=== PATIENT | male | born 1960 | race Caucasian/White ===

== ENCOUNTER 2016-09-28 10:17 | Emergency (ER) | payer BC ==
[2009-05-14 09:10] VITALS: BP 138/105
[~2016-09-28] VITALS: Ht 182.9 cm; Wt 181.8 kg
[~2016-09-28 10:17] MED LIST: AMOXICILLIN 8751 TAB PO; ANUSOL-HC SUPPO25 MG RC; ASPIRIN 32325 MG/TA1 PO; ASPIRIN 32325 MG/TAB PO; ASPIRIN E.C. 8181 MG PO; BENICAR HCT 251 TAB PO; BENICAR/HCTZ PO; BUFFERED ASPIR325 M1 PO; BUMEX 1MG TA1 MG/TA1 PO; CATAPRES 0.1MG0.1 MG PO; CATAPRES0.2 MG PO; CELEBREX 200MG200 MG PO; CIPRO 500MG TA500 MG PO; CLARITIN REDITA10 MG PO; CLOPIDOGREL PO; COUMADIN 5MG5 MG/TAB PO; COUMADIN 77.5 MG/TAB PO; COUMADIN4 MG PO; CRESTOR20 MG PO; DOXYCYCLINE 10100 MG PO; DOXYCYCLINE100 M2 PO; FISH OIL1 IU PO; FISH OIL1000 MG PO; FLAGYL500 MG PO; FLEXERIL 1010 MG/TAB PO; FLONASE NASAL S16 GM NS; GARLIC SUPPLEM300 MG PO; LORTAB 5/500 501 TAB PO; LOVENOX 100100 MG/ML SQ; LOVENOX 6060 MG/0.6 SQ; MOTRIN 800800 MG/TAB PO; MULTIPLE VITAMI1 CAP PO; MULTIPLE VITAMI1 TAB PO; MULTIVITAMIN1 CTB PO; MVI; NAPROSYN500 MG PO; NIASPAN500 MG PO; NITROSTAT0.4 MG/TAB SL; NORCO 325 MG-51 TAB PO; NORCO 325 MG-7.1 TAB PO; NORVASC 5MG5 MG/TAB PO; NORVASC PO; NORVASC2.5 MG PO; PERCOCET 325 MG1 TA2 PO; PERCOCET 325 MG1 TAB PO; PHARMASSURE GA500 MG PO; PLAVIX 75MG TAB75 MG PO; PRILOSEC 20MG20 MG PO; PRILOSEC10 MG PO; PROTONIX 40MG T40 MG PO; SIMCOR 1000 MG-1 TE1 PO; TEKTURNA150 MG PO; TOPROL XL 50MG50 MG PO; TOPROL XL50 MG PO; TRAMADOL HCL50 MG PO; TRILIPIX45 MG PO; ULTRAM 50MG TAB50 MG PO; VICODIN 5/5001 UDTAB PO; VITAMIN C BUFF500 MG PO; VITAMIN C500 MG PO; ZYLOPRIM 100MG100 MG PO
[2016-09-28 10:21] VITALS: TEMP 97.8
[2016-09-28 11:21] LABS: HEMATOCRIT 40.9 % (42.0-52.0); HEMOGLOBIN 14.1 g/dl (13.5-18.0); INR 1.2 (0.8-3.0); MEAN CELL VOLUME 79 fl (80.0-100.0); MEAN CORPUSCULAR HEMOGLOBIN 27 pg (27.0-31.0); MEAN CORPUSCULAR HGB CONC 35 g/dl (33.0-37.0); MEAN PLATELET VOLUME 9.3 fl (7.4-10.4); PLATELET COUNT 136 K/mm3 (130-400); PROTHROMBIN TIME 13.8 SECONDS (9.7-12.8); REDCELL DISTRIBUTION WIDTH-CV 15.7 % (11.5-14.5); WHITE BLOOD COUNT 5.9 K/mm3 (4.8-10.8)
[2016-09-28 11:22] LABS: ADD PATHOLOGY DIFF REVIEW NO
[2016-09-28 11:27] LABS: ADJUSTED CALCIUM 8.8 mg/dL (8.4-10.2); BILIRUBIN,TOTAL 1.3 mg/dL (0.0-1.0); CALCIUM 8.8 mg/dL (8.4-10.2); CREATININE, serum 1.03 mg/dL (0.66-1.25); POTASSIUM 3.4 mmol/L (3.4-5.0)
[2016-09-28 11:38] LABS: TROPONIN-I 0.014 ng/mL (0.000-0.034)
[2016-09-28] MEDS ORDERED: FLEXERIL 1010 MG/TAB PO (11:38)
[2016-09-28] MEDS ORDERED: LAMISIL250 M1 PO (11:38)
[2016-09-28] MEDS ORDERED: CATAPRES0.2 MG PO (11:38)
[2016-09-28] MEDS ORDERED: TOPROL XL 50MG50 MG PO (11:39)
[2016-09-28] MEDS ORDERED: BENICAR HCT 251 TAB PO (11:39)
[2016-09-28 12:01] LABS: BAND 32 % (0-10); BASOPHIL 1 % (0-2); METAMYELOCYTE 1 % (0-0); NEUTROPHILS 52 % (42.0-75.2); TOTAL CELLS COUNTED 100
[2016-09-28 12:04] LABS: ANISOCYTOSIS 1+; HYPOCHROMIA 1+; MICROCYTOSIS 1+; POLYCHROMASIA 1+
[2016-09-28 14:32] LABS: TROPONIN-I 0.012 ng/mL (0.000-0.034)
[2016-09-28] MEDS ORDERED: BACTRIM DS 8001 TAB PO (14:57)
[2016-09-28 15:13] VITALS: BP 131/80; PULSE 74
== END 2016-09-28 15:12 | disposition home or self-care (01) ==
LOC: COL.ER 10:17
PROVIDERS: Emergency Medicine
DX: R07.9 Chest pain, unspecified (principal); J32.9 Chronic sinusitis, unspecified; E87.8 Other disorders of electrolyte and fluid balance, not elsewhere classified; I10 Essential (primary) hypertension; I25.2 Old myocardial infarction; E78.5 Hyperlipidemia, unspecified; I25.10 Atherosclerotic heart disease of native coronary artery without angina pectoris; E66.01 Morbid (severe) obesity due to excess calories; Z95.5 Presence of coronary angioplasty implant and graft
CPT/HCPCS: J7030

== ENCOUNTER 2016-10-12 19:08 | Emergency (ER) | payer BC ==
[2009-05-14 09:10] VITALS: BP 138/105
[~2016-10-12] VITALS: Ht 182.9 cm; Wt 181.8 kg
[~2016-10-12 19:08] MED LIST changes: +BACTRIM DS 8001 TAB PO; +LAMISIL250 M1 PO
[2016-10-12 19:42] LABS: BASO # 0.1 (0.0-0.2); EOS % 0.6 % (0-4.0); GRAN # 3.7 (1.4-6.5); GRAN % 71.4 % (42.2-75.2); LYMPH # 0.9 (1.2-3.4); LYMPH % 17.7 % (20.0-51.0); MEAN CELL VOLUME 78 fl (80.0-100.0); MEAN CORPUSCULAR HGB CONC 35 g/dl (33.0-37.0); MEAN PLATELET VOLUME 8.8 fl (7.4-10.4); MONO # 0.5 (0.1-0.6); MONO % 8.9 % (1.7-9.3); PLATELET COUNT 300 K/mm3 (130-400); RED BLOOD COUNT 3.96 M/mm3 (4.20-5.60); REDCELL DISTRIBUTION WIDTH-CV 15.9 % (11.5-14.5); WHITE BLOOD COUNT 5.1 K/mm3 (4.8-10.8)
[2016-10-12 19:43] LABS: HEMATOCRIT 30.9 % (42.0-52.0); HEMOGLOBIN 10.8 g/dl (13.5-18.0); MEAN CORPUSCULAR HEMOGLOBIN 27 pg (27.0-31.0)
[2016-10-12 19:46] LABS: INR 1.2 (0.8-3.0); PROTHROMBIN TIME 13.1 SECONDS (9.7-12.8)
[2016-10-12 19:49] LABS: PARTIAL THROMBOPLASTIN TIME 30.4 SECONDS (26.0-37.0)
[2016-10-12 19:56] LABS: ADJUSTED CALCIUM 8.8 mg/dL (8.4-10.2); ALANINE AMINOTRANSFERASE 43 U/L (21-72); ALBUMIN 3.7 gm/dL (3.5-5.0); ALKALINE PHOSPHATASE 133 U/L (50-136); ANION GAP 10 mmol/L (7-16); BLOOD UREA NITROGEN 18 mg/dL (9-20); CALCIUM 8.6 mg/dL (8.4-10.2); CARBON DIOXIDE 27 mmol/L (22-30); CHLORIDE 95 mmol/L (98-107); CREATININE, serum 1.29 mg/dL (0.66-1.25); GLUCOSE 114 mg/dL (74-106); POTASSIUM 3.7 mmol/L (3.4-5.0); SODIUM 131 mmol/L (137-145); TOTAL PROTEIN 7.1 gm/dL (6.4-8.2)
[2016-10-12 20:05] LABS: TROPONIN-I < 0.012 ng/mL (0.000-0.034)
[2016-10-12 20:21] LABS: C-REACTIVE PROTEIN 14.8 mg/dL (0.0-0.9)
[2016-10-12 21:15] LABS: PH 7 (5-8); SQUAMOUS EPITHELIAL 0-2 /hpf; URINE APPEARANCE Clear; URINE BACTERIA None Seen /hpf; URINE BILIRUBIN Negative (NEGATIVE); URINE BLOOD 1+ (NEGATIVE); URINE COLOR Straw; URINE GLUCOSE Negative (NEGATIVE); URINE KETONE Negative (NEGATIVE); URINE RBC 0-2 /hpf; URINE UROBILINOGEN Negative (NEGATIVE); URINE WBC 0-2 /hpf
[2016-10-12 23:04] VITALS: BP 130/88; PULSE 78; TEMP 98.9
== END 2016-10-12 23:10 | disposition home or self-care (01) ==
LOC: COL.ER 19:08
PROVIDERS: Emergency Medicine
DX: B34.9 Viral infection, unspecified (principal); J32.9 Chronic sinusitis, unspecified; I10 Essential (primary) hypertension; R60.0 Localized edema; R53.1 Weakness; R06.02 Shortness of breath; R07.9 Chest pain, unspecified; R51 Headache; I25.10 Atherosclerotic heart disease of native coronary artery without angina pectoris; Z95.5 Presence of coronary angioplasty implant and graft; E66.01 Morbid (severe) obesity due to excess calories; Z68.43 Body mass index [BMI] 50.0-59.9, adult; R79.89 Other specified abnormal findings of blood chemistry
CPT/HCPCS: J2543; J2765; J3010; J7030; J7050; Q9967

== ENCOUNTER 2016-11-03 11:15 | Day surgery (SDC) | payer BC ==
[~2016-11-03] VITALS: Ht 182.9 cm; Wt 179.4 kg
[2016-11-03] VITALS (331 sets, daily range): BP systolic 112–151; BP diastolic 62–95; PULSE 63–78; TEMP 97–98.2; O2SAT 85–100
[2016-11-03] MEDS ORDERED: LAMISIL250 M1 (11:53)
[2016-11-03 12:45] LABS: HEMOGLOBIN 12.3 g/dl (13.5-18.0); MEAN CELL VOLUME 82 fl (80.0-100.0); MEAN CORPUSCULAR HEMOGLOBIN 28 pg (27.0-31.0); MEAN CORPUSCULAR HGB CONC 34 g/dl (33.0-37.0); MEAN PLATELET VOLUME 9.1 fl (7.4-10.4); PLATELET COUNT 244 K/mm3 (130-400); RED BLOOD COUNT 4.45 M/mm3 (4.20-5.60); REDCELL DISTRIBUTION WIDTH-CV 16.7 % (11.5-14.5); WHITE BLOOD COUNT 8.7 K/mm3 (4.8-10.8)
[2016-11-03 12:46] LABS: HEMATOCRIT 36.3 % (42.0-52.0); INR 1.1 (0.8-3.0); PROTHROMBIN TIME 11.7 SECONDS (9.7-12.8)
[2016-11-03 13:08] LABS: CALCIUM 9.1 mg/dL (8.4-10.2); CREATININE, serum 0.8 mg/dL (0.66-1.25); POTASSIUM 3.5 mmol/L (3.4-5.0)
[2016-11-04] VITALS (417 sets, daily range): BP systolic 131–149; BP diastolic 74–93; PULSE 60–61; TEMP 97.7–98.1; O2SAT 83–100
[2016-11-04 06:59] LABS: BASO # 0.1 (0.0-0.2); BASO % 0.9 % (0.0-2.0); EOS # 0.2 (0.0-0.7); EOS % 3.5 % (0-4.0); GRAN # 3.7 (1.4-6.5); HEMOGLOBIN 12.2 g/dl (13.5-18.0); LYMPH # 1.4 (1.2-3.4); LYMPH % 24.2 % (20.0-51.0); MEAN CELL VOLUME 82 fl (80.0-100.0); MEAN CORPUSCULAR HEMOGLOBIN 27 pg (27.0-31.0); MEAN CORPUSCULAR HGB CONC 33 g/dl (33.0-37.0); MEAN PLATELET VOLUME 8.9 fl (7.4-10.4); MONO # 0.4 (0.1-0.6); MONO % 7.1 % (1.7-9.3); PLATELET COUNT 212 K/mm3 (130-400); RED BLOOD COUNT 4.47 M/mm3 (4.20-5.60); REDCELL DISTRIBUTION WIDTH-CV 16.5 % (11.5-14.5); WHITE BLOOD COUNT 5.8 K/mm3 (4.8-10.8)
[2016-11-04 07:05] LABS: HEMATOCRIT 36.6 % (42.0-52.0)
[2016-11-04 07:19] LABS: CALCIUM 8.6 mg/dL (8.4-10.2); CREATININE, serum 0.78 mg/dL (0.66-1.25); POTASSIUM 3.6 mmol/L (3.4-5.0)
[2016-11-04] MEDS ORDERED: ASPIRIN E.C. 8181 MG PO (09:16)
== END 2016-11-04 10:40 | disposition home or self-care (01) ==
LOC: COL.CAR 11:15 → ICU 15:16 → IMCU 22:28 → COL.CAR 11-04 10:40
PROVIDERS: Internal Medicine Cardiovascular Disease
DX: I25.110 Atherosclerotic heart disease of native coronary artery with unstable angina pectoris (principal); I25.2 Old myocardial infarction; I34.0 Nonrheumatic mitral (valve) insufficiency
CPT/HCPCS: OP; C1769; C1874; C1894; C9600; J0583; J2250; J3010; Q9967

== ENCOUNTER 2017-01-23 15:53 | Outpatient (RCR) | payer BC ==
[~2017-01-23 15:53] MED LIST changes: +LAMISIL250 M1
== END 2017-01-30 15:30 | disposition still patient (30) ==
LOC: COL.CR 15:53
DX: Z48.812 Encounter for surgical aftercare following surgery on the circulatory system (principal); Z95.5 Presence of coronary angioplasty implant and graft; I25.10 Atherosclerotic heart disease of native coronary artery without angina pectoris

== ENCOUNTER → 2017-02-10 | Outpatient (CLI) | payer BC | LOC: COL.RAD 10:04 | DX: K76.0 Fatty (change of) liver, not elsewhere classified (principal); N28.1 Cyst of kidney, acquired ==

== ENCOUNTER → 2017-11-11 | Outpatient (CLI) | payer BC | LOC: COL.VAS 12:56 | DX: M79.89 Other specified soft tissue disorders (principal) ==

== ENCOUNTER 2018-01-04 13:53 | Outpatient (RCR) | payer OTHER | END 2018-03-23 | disposition home or self-care (01) | LOC: WSOH | DX: S60.222A Contusion of left hand, initial encounter (principal); W22.8XXA Striking against or struck by other objects, initial encounter; W27.8XXA Contact with other nonpowered hand tool, initial encounter; Y99.0 Civilian activity done for income or pay; Z79.899 Other long term (current) drug therapy ==

== ENCOUNTER → 2018-03-30 | Outpatient (CLI) | payer BC | LOC: COL.RAD 08:05 | DX: M17.12 Unilateral primary osteoarthritis, left knee (principal); S83.232A Complex tear of medial meniscus, current injury, left knee, initial encounter; S83.282A Other tear of lateral meniscus, current injury, left knee, initial encounter ==

== ENCOUNTER 2018-05-05 05:24 | Day surgery (SDC) | payer BC ==
[2009-05-14 09:10] VITALS: BP 138/105
[2018-05-05] VITALS (11 sets, daily range): BP systolic 124–182; BP diastolic 52–84; PULSE 74–86; TEMP 97.6–98.2
[~2018-05-05] VITALS: Ht 180.3 cm; Wt 183.6 kg
[2018-05-05] MEDS ORDERED: NORVASC 5MG5 MG/TAB PO (07:03)
[2018-05-05] MEDS ORDERED: VITAMINC1000TA PO (07:04)
[2018-05-05] MEDS ORDERED: MASON NATURAL1200 MG PO (07:07)
[2018-05-05] MEDS ORDERED: ALDACTONE 25MG25 M1 PO (07:10)
[2018-05-05] MEDS ORDERED: PERCOCET 325 MG1 TA2 PO (07:11)
[2018-05-05] MEDS ORDERED: NORCO 325 MG-7.1 TAB PO (10:41)
== END 2018-05-05 13:55 | disposition home or self-care (01) ==
LOC: SDCO 05:24
DX: M23.304 Other meniscus derangements, unspecified medial meniscus, left knee (principal); M23.301 Other meniscus derangements, unspecified lateral meniscus, left knee; M79.4 Hypertrophy of (infrapatellar) fat pad; Z79.02 Long term (current) use of antithrombotics/antiplatelets; Z79.899 Other long term (current) drug therapy; I49.9 Cardiac arrhythmia, unspecified; M10.9 Gout, unspecified; I25.2 Old myocardial infarction; I10 Essential (primary) hypertension; E11.9 Type 2 diabetes mellitus without complications; Z79.84 Long term (current) use of oral hypoglycemic drugs; I25.10 Atherosclerotic heart disease of native coronary artery without angina pectoris; Z86.718 Personal history of other venous thrombosis and embolism; Z86.711 Personal history of pulmonary embolism; G47.33 Obstructive sleep apnea (adult) (pediatric); F40.240 Claustrophobia; F41.9 Anxiety disorder, unspecified; J40 Bronchitis, not specified as acute or chronic; R05 Cough
CPT/HCPCS: J0690; J1100; J1170; J2405; J2704; J3010; J7030

== ENCOUNTER → 2018-05-11 | Outpatient (CLI) | payer BC ==
[~2018-05-11] MED LIST changes: +ALDACTONE 25MG25 M1 PO; +MASON NATURAL1200 MG PO; +VITAMINC1000TA PO
== END ==
LOC: COL.RAD 08:57
DX: R10.9 Unspecified abdominal pain (principal); R60.0 Localized edema; Z96.652 Presence of left artificial knee joint

== ENCOUNTER 2018-05-28 11:02 | Emergency (ER) | payer BC ==
[2009-05-14 09:10] VITALS: BP 138/105
[~2018-05-28] VITALS: Ht 180.3 cm; Wt 177.3 kg
[2018-05-28 11:06] VITALS: TEMP 99
[2018-05-28 13:00] LABS: BASO % 0.4 % (0.0-2.0); EOS # 0.1 (0.0-0.7); EOS % 1.2 % (0-4.0); GRAN # 7.3 (1.4-6.5); GRAN % 77.1 % (42.2-75.2); HEMATOCRIT 42.3 % (42.0-52.0); HEMOGLOBIN 14.3 g/dl (13.5-18.0); LYMPH # 1.4 (1.2-3.4); LYMPH % 15.2 % (20.0-51.0); MEAN CELL VOLUME 85 fl (80.0-100.0); MEAN CORPUSCULAR HEMOGLOBIN 29 pg (27.0-31.0); MEAN CORPUSCULAR HGB CONC 34 g/dl (33.0-37.0); MEAN PLATELET VOLUME 9.2 fl (7.4-10.4); MONO # 0.6 (0.1-0.6); MONO % 5.8 % (1.7-9.3); PLATELET COUNT 375 K/mm3 (130-400); REDCELL DISTRIBUTION WIDTH-CV 15.2 % (11.5-14.5)
[2018-05-28 13:12] LABS: ALANINE AMINOTRANSFERASE 61 U/L (21-72); ALBUMIN 4.3 gm/dL (3.5-5.0); ALKALINE PHOSPHATASE 88 U/L (50-136); ANION GAP 8 mmol/L (7-16); AST,SGOT 77 U/L (15-37); BILIRUBIN,TOTAL 0.4 mg/dL (0.0-1.0); BLOOD UREA NITROGEN 17 mg/dL (9-20); CALCIUM 9.2 mg/dL (8.4-10.2); CARBON DIOXIDE 27 mmol/L (22-30); CHLORIDE 107 mmol/L (98-107); CREATININE, serum 0.88 mg/dL (0.66-1.25); GLUCOSE 148 mg/dL (74-106); SODIUM 142 mmol/L (137-145); TOTAL PROTEIN 7.9 gm/dL (6.4-8.2)
[2018-05-28 13:26] LABS: TROPONIN-I < 0.012 ng/mL (0.000-0.034)
[2018-05-28] MEDS ORDERED: NORVASC 5MG5 MG/TAB PO (14:31)
[2018-05-28] MEDS ORDERED: GLUCOPHAGE500 MG/TAB PO (14:33)
[2018-05-28 15:10] VITALS: BP 148/82; PULSE 75
== END 2018-05-28 16:12 | disposition home or self-care (01) ==
LOC: COL.ER 11:02
PROVIDERS: Emergency Medicine
DX: I10 Essential (primary) hypertension (principal); R53.81 Other malaise; Z79.02 Long term (current) use of antithrombotics/antiplatelets; Z79.82 Long term (current) use of aspirin

== ENCOUNTER 2018-08-11 14:36 | Outpatient (RCR) | payer OTHER ==
[~2018-08-11 14:36] MED LIST changes: +GLUCOPHAGE500 MG/TAB PO
== END 2018-11-08 | disposition home or self-care (01) ==
LOC: WSOH
DX: M25.511 Pain in right shoulder (principal); W18.09XA Striking against other object with subsequent fall, initial encounter; Y93.H9 Activity, other involving exterior property and land maintenance, building and construction; Y92.59 Other trade areas as the place of occurrence of the external cause; Y99.0 Civilian activity done for income or pay; Z79.01 Long term (current) use of anticoagulants; Z79.84 Long term (current) use of oral hypoglycemic drugs; Z79.899 Other long term (current) drug therapy

== ENCOUNTER → 2018-08-23 | Outpatient (CLI) | payer OTHER | LOC: COL.RAD 14:23 | DX: M25.511 Pain in right shoulder (principal) ==

== ENCOUNTER → 2018-09-16 | Outpatient (CLI) | payer OTHER | LOC: COL.RAD 14:00 | DX: S46.811A Strain of other muscles, fascia and tendons at shoulder and upper arm level, right arm, initial encounter (principal); M75.21 Bicipital tendinitis, right shoulder | CPT/HCPCS: Q9967 ==

== ENCOUNTER 2019-05-09 10:04 | Inpatient (IN) | payer BC ==
[2019-05-09] VITALS (292 sets, daily range): BP systolic 78–125; BP diastolic 41–62; PULSE 72–80; TEMP 97.2–98.2; O2SAT 84–100
[~2019-05-09] VITALS: Ht 182.9 cm; Wt 149.0 kg
[2019-05-09 10:34] LABS: BASO # 0.1 (0.0-0.2); BASO % 0.6 % (0.0-2.0); EOS # 0.1 (0.0-0.7); GRAN # 6.4 (1.4-6.5); GRAN % 70.3 % (42.2-75.2); HEMATOCRIT 39.7 % (42.0-52.0); HEMOGLOBIN 13.8 g/dl (13.5-18.0); LYMPH # 1.6 (1.2-3.4); LYMPH % 17.5 % (20.0-51.0); MEAN CELL VOLUME 82 fl (80.0-100.0); MEAN CORPUSCULAR HEMOGLOBIN 29 pg (27.0-31.0); MEAN CORPUSCULAR HGB CONC 35 g/dl (33.0-37.0); MONO # 0.9 (0.1-0.6); MONO % 9.9 % (1.7-9.3); PLATELET COUNT 376 K/mm3 (130-400); RED BLOOD COUNT 4.83 M/mm3 (4.20-5.60); REDCELL DISTRIBUTION WIDTH-CV 15.2 % (11.5-14.5)
[2019-05-09 10:43] LABS: ALANINE AMINOTRANSFERASE 24 U/L (21-72); ALBUMIN 4.3 gm/dL (3.5-5.0); ALKALINE PHOSPHATASE 200 U/L (50-136); ANION GAP 19 mmol/L (7-16); AST,SGOT 26 U/L (15-37); BILIRUBIN,TOTAL 0.7 mg/dL (0.0-1.0); BLOOD UREA NITROGEN 77 mg/dL (9-20); CALCIUM 9.3 mg/dL (8.4-10.2); CARBON DIOXIDE 16 mmol/L (22-30); CHLORIDE 93 mmol/L (98-107); POTASSIUM 5.1 mmol/L (3.4-5.0); SODIUM 129 mmol/L (137-145); TOTAL PROTEIN 8.2 gm/dL (6.4-8.2)
[2019-05-09 10:46] LABS: PROTHROMBIN TIME 11.1 SECONDS (9.7-12.8)
[2019-05-09 10:56] LABS: TROPONIN-I < 0.012 ng/mL (0.000-0.035)
[2019-05-09 10:57] LABS: GLUCOSE 616 mg/dL (74-106)
[2019-05-09 11:27] LABS: D-DIMER < 200.00 ng/mLDDu (200-230)
--- NOTE | 2019-05-09 15:29 | NUR ---
PT ADMITTED [facility] FROM ED, C/O DISCOMFORT IN BACK FROM BED, DENIES ANY OTHER PAIN. DR. VAZQUEZ MADE AARE OF PT ARRIVAL TO UNIT AND, HIS PHOTOGRAPHIC COLORIST WAS AT BEDSIDE TO ASSESS. SBPS RUNNING IN 80'S AND BOLUS, STARTED. WILL CONTINUE TO MONITOR STATUS AND UPDATE PROVEDERS. NEPH CONSULT AWARE.
[2019-05-09 16:47] LABS: ANION GAP 17 mmol/L (7-16); BLOOD UREA NITROGEN 76 mg/dL (9-20); CALCIUM 9.1 mg/dL (8.4-10.2); CARBON DIOXIDE 15 mmol/L (22-30); CHLORIDE 99 mmol/L (98-107); CREATININE, serum 7.59 (0.66-1.25); GLUCOSE 399 mg/dL (74-106); POTASSIUM 4.6 mmol/L (3.4-5.0); SODIUM 131 mmol/L (137-145)
[2019-05-09 17:00] LABS: TROPONIN-I 6 HR POST INITIAL < 0.012 ng/mL (0.000-0.034)
--- NOTE | 2019-05-09 17:01 | NUR ---
CENTRAL CURRENTLY BEING PLACED AT BEDSIDE, TIME OUT CONDUCTED AT 1649, DR. MORA AT BEDSIDE FOR PROCEDURE, CONSENT SIGNED AND PLACED ON CHART. WILL STAND BY TO ASSIST AND CONTINUE TO MONITOR PT STATUS.
[2019-05-09 18:44] LABS: COLLECTION METHOD CLEAN CATCH
[2019-05-09 18:49] LABS: CALCIUM 9.3 mg/dL (8.4-10.2); CREATININE, serum 7.81 (0.66-1.25); POTASSIUM 4.2 mmol/L (3.4-5.0)
[2019-05-09 19:04] LABS: MUCOUS Present /lpf; PH 5 (5-8); SQUAMOUS EPITHELIAL 0-2 /hpf; URINE APPEARANCE Cloudy; URINE BACTERIA Rare /hpf; URINE BILIRUBIN Negative (NEGATIVE); URINE BLOOD 1+ (NEGATIVE); URINE COLOR Yellow; URINE GLUCOSE 3+ (NEGATIVE); URINE KETONE Negative (NEGATIVE); URINE LEUKOCYTE ESTERASE Negative (NEGATIVE); URINE NITRATE Negative (NEGATIVE); URINE PROTEIN(semi-quant) 1+ (NEGATIVE); URINE RBC 0-2 /hpf; URINE UROBILINOGEN Negative (NEGATIVE)
--- NOTE | 2019-05-09 19:20 | NUR ---
Patient transfered to ICU 5 from [facility] 17 by STALIN Gamino. Assisted with transfer of patient to unit bed. Attached to unit monitoring equipment.
[2019-05-09 19:45] LABS: CREATININE, serum 7.81 (0.66-1.25); FRACTIONAL EXCRETION OF NA+ 1.4 %
--- NOTE | 2019-05-09 20:10 | NUR ---
Bedside report received from STALIN Christensen.
--- NOTE | 2019-05-09 20:15 | NUR ---
Patient awake and watching tv. He is alert and oriented x4. Complaints of 3/10 aching pain in his chest that is intermittent. Does not request pain meds at this time. Assessment complete. Lungs are clear bilaterally in all [place] with diminished bases. HR and rhythm are regular with normal S1 and S2 heard. Bowel sounds active x4. Peripheral pulses are palpable. Patient has some +1 pitting edema to lower extremities. Patient requests some water, provided. Patient has no further needs at this time. Will continue to monitor. Call light within reach
[2019-05-09 20:49] LABS: CALCIUM 9.1 mg/dL (8.4-10.2); CREATININE, serum 7.81 (0.66-1.25); POTASSIUM 4.3 mmol/L (3.4-5.0)
--- NOTE | 2019-05-09 22:00 | NUR ---
Levophed started at this time due to low pressures and MAP's.
[2019-05-10] VITALS (320 sets, daily range): BP systolic 113–128; BP diastolic 47–84; PULSE 79–116; TEMP 97.6–98.5; O2SAT 87–100
--- NOTE | 2019-05-10 | NUR ---
Patient asleep but awakens easily to noise in the room. No complaints of pain at this time. Assessment complete with no changes from previous exam. Vitals obtained and remain stable. No further needs at this time. Will continue to monitor. Call light within reach.
--- NOTE | 2019-05-10 04:00 | NUR ---
Patient awake and watching tv. Has no complaints of pain. Vitals obtained and remain stable. Levophed to be shut off as pressures have been acceptable. Assessment complete with no changes from previous exam. No further needs at this time. Will continue to monitor, call light within reach.
[2019-05-10 05:27] LABS: BASO # 0.1 (0.0-0.2); BASO % 0.5 % (0.0-2.0); EOS # 0.1 (0.0-0.7); EOS % 0.9 % (0-4.0); GRAN # 5.9 (1.4-6.5); LYMPH # 2.2 (1.2-3.4); LYMPH % 24.2 % (20.0-51.0); MEAN CELL VOLUME 83 fl (80.0-100.0); MEAN CORPUSCULAR HGB CONC 34 g/dl (33.0-37.0); MEAN PLATELET VOLUME 10.7 fl (7.4-10.4); MONO # 0.9 (0.1-0.6); MONO % 9.9 % (1.7-9.3); PLATELET COUNT 333 K/mm3 (130-400); RED BLOOD COUNT 4.14 M/mm3 (4.20-5.60); REDCELL DISTRIBUTION WIDTH-CV 15.7 % (11.5-14.5)
[2019-05-10 05:28] LABS: HEMATOCRIT 34.4 % (42.0-52.0); HEMOGLOBIN 11.6 g/dl (13.5-18.0); MEAN CORPUSCULAR HEMOGLOBIN 28 pg (27.0-31.0)
[2019-05-10 05:37] LABS: ALBUMIN 3.6 gm/dL (3.5-5.0); BILIRUBIN,TOTAL 0.5 mg/dL (0.0-1.0); CALCIUM 8.7 mg/dL (8.4-10.2); CHOLESTEROL RISK RATIO 6.6; CREATININE, serum 8.17 (0.66-1.25); POTASSIUM 4.1 mmol/L (3.4-5.0); TOTAL PROTEIN 7.1 gm/dL (6.4-8.2)
[2019-05-10 05:47] LABS: TROPONIN-I 0.012 ng/mL (0.000-0.035)
--- NOTE | 2019-05-10 07:30 | NUR ---
Bedside report given to STALIN Fajardo.
--- NOTE | 2019-05-10 08:00 | NUR ---
Shift assessment complete at this time. Plan of care reviewed at bedside with patient. Additional time taken to address any other needs or concerns. Pt denies pain or any other discomforts. Vitals stable at this time. Bed in low position, call light within reach, will continue to monitor.
--- NOTE | 2019-05-10 09:31 | NUR ---
Initial visit; Patient thanked Hose Inspector for looking in on him and offering God's blessings.
--- NOTE | 2019-05-10 12:00 | NUR ---
Pt resting comfortably in bed. Denies pain or any other discomfort. Bed in low position, call light within reach. Will continue to monitor.
--- NOTE | 2019-05-10 15:55 | NUR ---
PT LAYING IN BED UPON ENTRY, C/O BEING COLD. ASSISTED TO COVER UP PT, AND PROVIDED A WARM BLANKET. TEMP WAS 98.4 ORALLY. CONSENT SIGNED FOR EGD IN AM. NO QUESTIONS ASKED.
--- NOTE | 2019-05-10 17:00 | NUR ---
PT CALLED THIS NURSE TO ROOM. STATED THAT HE WAS HAVING BLADDER/ CATHETER PAIN. THIS NURSE ASSESSED BOOKER. BOOKER TUB WAS UNDER PT LEG. THIS NURSE MOVED TUBING. URINE RETURN NOTED BUT WAS PINK IN COLOR. SOME BLOOD NOTED TO BED PAD UNDER SCROTUM, NO OPEN AREA NOTED. PT STATED HE THOUGHT IT WAS PULLED AT SOME POINT WHEN GETTING UP AND MOVING FOR TESTS IN EARLIER DAY. THIS NURSE WILL CONTINUE TO MONITOR. AFTER NOTED URINE RETURN PT STATED HE FELT SOME PAIN RELIEF. TOLD PT THAT IF THE PAIN CONTINUED THAT WE MAYBE ABLE TO GET SOME MED FOR BLADDER SPASMS IF NEEDED TO LET US KNOW.
--- NOTE | 2019-05-10 21:00 | NUR ---
Initial shift assessment done- denies pain at this time, VSS, o2 at 2L/nc, IV fluids of NS at 100cc/hr, Shipman to DD with peach colored urine, Tele on, will be NPO after MN. Sitting on edge of bed- no requests.
--- NOTE | 2019-05-10 22:45 | NUR ---
Pt states having some abd pain- /10,,states would like a Percocet --no pain meds ordered, Dr. Marie called and order obtained for Tylenol and Percocet prn
[2019-05-11] VITALS (18 sets, daily range): BP systolic 83–138; BP diastolic 40–76; PULSE 99–117; TEMP 97.4–98.6
--- NOTE | 2019-05-11 05:27 | NUR ---
Quiet night- NPO for tests this morning-Lexiscan and EGD, Shipman with clear don urine- states percocet has helped with abd pain-
[2019-05-11 06:18] LABS: BASO % 0.4 % (0.0-2.0); EOS # 0.1 (0.0-0.7); EOS % 0.7 % (0-4.0); GRAN # 7.1 (1.4-6.5); GRAN % 74.5 % (42.2-75.2); HEMOGLOBIN 11.2 g/dl (13.5-18.0); LYMPH # 1.2 (1.2-3.4); LYMPH % 12.6 % (20.0-51.0); MEAN CELL VOLUME 84 fl (80.0-100.0); MEAN CORPUSCULAR HEMOGLOBIN 29 pg (27.0-31.0); MEAN CORPUSCULAR HGB CONC 34 g/dl (33.0-37.0); MONO # 1.1 (0.1-0.6); MONO % 11.3 % (1.7-9.3); PLATELET COUNT 307 K/mm3 (130-400); RED BLOOD COUNT 3.92 M/mm3 (4.20-5.60); REDCELL DISTRIBUTION WIDTH-CV 15.8 % (11.5-14.5)
[2019-05-11 06:30] LABS: HEMATOCRIT 32.8 % (42.0-52.0)
[2019-05-11 06:33] LABS: CALCIUM 8.7 mg/dL (8.4-10.2); CREATININE, serum 8.15 (0.66-1.25); MAGNESIUM 2.1 mg/dL (1.6-2.3)
--- NOTE | 2019-05-11 06:41 | NUR ---
NPO, VSS. Pre-op checklist completed, clean gown, brushed teeth- Shipman to DD with don urine.
--- NOTE | 2019-05-11 09:26 | NUR ---
SW met with the patient to discuss a discharge plan. The patient lives alone in [place]. The patient does not use DME and reports independence with ADLs. The patient's PCP is Dr. Mohr and patient receives medications from [facility] with no difficulties. The patient does not have advance directives in the EMR. SW left a DPOA-HC form for the patient. The patient plans to return home upon discharge with a friend providing transportation. KISHAN attended clinical rounds with the team. PT/ST were ordered for the patient and patient will have a cardiac stress test this day. There are no additional needs at this time.
--- NOTE | 2019-05-11 10:02 | NUR ---
Follow-up visit; Patient states he is still undergoing testing to get a diagnosis for his health issues. Neon Sign Servicer will keep him in her prayers and wishes him a diagnosis and rapid healing.
--- NOTE | 2019-05-11 10:45 | NUR ---
THIS NURSE WAS INFORMED FROM NOC NURSE ABOUT DISCOLORED AREA TO PT GARTH. WAS ABLE TO VIEW AREA AT THIS TIME. ULCER APPEARING AREA THAT IS BLACKENED, RED SKIN SOUROUNDING ULCER. PT STATED HE HAD SEEN BLOOD ON PAD AND THAT MUST BE WHAT IT WAS FROM, WAS OTHERWISE UNKNOWN TO HIM HE HAD ULCER. AREA TENDER TO TOUCH. THIS NURSE NOTIFIED PA AND PROVIDER ABOUT AREA.
--- NOTE | 2019-05-11 11:11 | NUR ---
PT WENT DOWN TO EGD THIS AM. NO ISSUES AFTERWARDS, VITALS WNL AFTERWARDS. PT GOING DOWN FOR LEXISCAN AT THIS TIME. NO QUESTIONS OR CONSERNS VOICED. PLEASENT AND COOPERATIVE WITH CARES.
--- NOTE | 2019-05-11 19:01 | NUR ---
PT HAD LEXISCAN WAS NPO UNTIL RESULTS CAME IN, SPEECH THREARPY INTO SEE PT THIS LATE AFTERNOON, HAD MONITORED SWALLOWING.
--- NOTE | 2019-05-11 22:22 | NUR ---
Patient resting in bed. Alert and oriented with VSS. Has triple lumen IN that is CD&I. PM meds given with no issues. Patient did c/o mild nausea. PRN zofran given. Patient does also have a round dark colored sore on his bottom. Per day shift, hospitalist has been notified but has not checked it out. Patient feeling ok. Denies needs at this time. Call light within reach, will continue to monitor
[2019-05-12] VITALS (8 sets, daily range): BP systolic 83–113; BP diastolic 41–76; PULSE 99–114; TEMP 97.5–98.7
--- NOTE | 2019-05-12 01:38 | NUR ---
Called Dr. ward regarding pt BP. Per dr, bolus pt with 1000ml. continue to monitor
--- NOTE | 2019-05-12 03:02 | NUR ---
Pt received 1L bolus, rechecked and had BP of 92/54. Will continue to monitor
[2019-05-12 06:21] LABS: BASO % 0.4 % (0.0-2.0); EOS # 0.1 (0.0-0.7); EOS % 0.8 % (0-4.0); GRAN # 7.7 (1.4-6.5); GRAN % 72.4 % (42.2-75.2); HEMOGLOBIN 11.6 g/dl (13.5-18.0); LYMPH # 1.6 (1.2-3.4); LYMPH % 15.2 % (20.0-51.0); MEAN CELL VOLUME 84 fl (80.0-100.0); MEAN CORPUSCULAR HEMOGLOBIN 28 pg (27.0-31.0); MEAN CORPUSCULAR HGB CONC 34 g/dl (33.0-37.0); MEAN PLATELET VOLUME 10.4 fl (7.4-10.4); MONO # 1.1 (0.1-0.6); MONO % 10.4 % (1.7-9.3); PLATELET COUNT 332 K/mm3 (130-400); REDCELL DISTRIBUTION WIDTH-CV 15.9 % (11.5-14.5)
[2019-05-12 06:29] LABS: HEMATOCRIT 34.6 % (42.0-52.0)
[2019-05-12 06:43] LABS: CREATININE, serum 6.06 (0.66-1.25); MAGNESIUM 1.8 mg/dL (1.6-2.3); PHOSPHOROUS 5.5 mg/dL (2.5-4.5); POTASSIUM 3.9 mmol/L (3.4-5.0)
--- NOTE | 2019-05-12 07:44 | NUR ---
this student nurse received report from STALIN Steen. this student nurse is assisting primary nurse STALIN Lui with patient care between @[phone]. will continue to monitor patient.
[2019-05-12 10:44] LABS: URINE PROTEIN:CREAT RATIO 0.81 (0.00-0.14)
[2019-05-12 10:54] LABS: GRANULAR CAST >12 /lpf; MUCOUS Present /lpf; PH 5 (5-8); SQUAMOUS EPITHELIAL 0-2 /hpf; URINE APPEARANCE Cloudy; URINE BACTERIA Occasional /hpf; URINE BILIRUBIN Negative (NEGATIVE); URINE BLOOD 3+ (NEGATIVE); URINE COLOR Yellow; URINE GLUCOSE 3+ (NEGATIVE); URINE KETONE Trace (NEGATIVE); URINE LEUKOCYTE ESTERASE Negative (NEGATIVE); URINE NITRATE Negative (NEGATIVE); URINE PROTEIN(semi-quant) 1+ (NEGATIVE); URINE RBC >50 /hpf; URINE UROBILINOGEN Negative (NEGATIVE)
--- NOTE | 2019-05-12 11:00 | NUR ---
this student nurse applied clear moisture barrier ointment and an Allev[employer] Shadows Life Sacrum dressing to coccyx area. primary nurse agreed. golf ball size blackened ulcer to mid inner buttocks noted. inner buttocks inflammed and painful to touch. this nurse encouraged repositioning. will continue to monitor patient.
[2019-05-12 11:49] LABS: COLLECTION METHOD CATHETER
--- NOTE | 2019-05-12 13:54 | NUR ---
Primary nurse was assisted with [phone] patient care by [facility] ADN student Marciano Nelson and [facility] instructor Greer Yi RN-.
--- NOTE | 2019-05-12 14:51 | NUR ---
First visit from the oracle consultant. No needs right now.
--- NOTE | 2019-05-12 20:30 | NUR ---
Initial shift assessment done- states having back pain 01/05,,will give Percocet as ordered, Tele on, IV fluids of NS at 100cc/hr, Shipman to DD with don colored urine- Sitting at edge of bed- states overall doing good-
--- NOTE | 2019-05-13 00:30 | NUR ---
Regina MATOS notified of B/P 8447-- orders for a 1000cc IV fluid bolus
[2019-05-13 03:29] VITALS: BP 101/60; PULSE 101
--- NOTE | 2019-05-13 05:57 | NUR ---
Up sitting on edge of bed- no requests, did sleep fair during the night- Got the 1L 1000cc IV fluid bolus during the night for low B/P- B/P di come up to 101 systolic
[2019-05-13 06:06] LABS: BASO # 0.1 (0.0-0.2); BASO % 0.6 % (0.0-2.0); EOS # 0.2 (0.0-0.7); EOS % 2.1 % (0-4.0); GRAN # 7.3 (1.4-6.5); GRAN % 69.1 % (42.2-75.2); HEMOGLOBIN 11.9 g/dl (13.5-18.0); LYMPH % 18.8 % (20.0-51.0); MEAN CELL VOLUME 84 fl (80.0-100.0); MEAN CORPUSCULAR HEMOGLOBIN 28 pg (27.0-31.0); MEAN CORPUSCULAR HGB CONC 33 g/dl (33.0-37.0); MEAN PLATELET VOLUME 10.3 fl (7.4-10.4); MONO # 0.9 (0.1-0.6); MONO % 8.5 % (1.7-9.3); PLATELET COUNT 389 K/mm3 (130-400); RED BLOOD COUNT 4.26 M/mm3 (4.20-5.60); REDCELL DISTRIBUTION WIDTH-CV 15.9 % (11.5-14.5)
[2019-05-13 06:17] LABS: CALCIUM 8.8 mg/dL (8.4-10.2); CREATININE, serum 4.74 (0.66-1.25); MAGNESIUM 1.4 mg/dL (1.6-2.3); PHOSPHOROUS 4.9 mg/dL (2.5-4.5); POTASSIUM 3.5 mmol/L (3.4-5.0)
[2019-05-13 06:25] LABS: HEMATOCRIT 35.8 % (42.0-52.0)
--- NOTE | 2019-05-13 07:00 | NUR ---
Report received from STALIN Guerrero. PT in bed resting with student nurse in room, doing well, continues to improve per patient, will continue to monitor.
--- NOTE | 2019-05-13 07:03 | NUR ---
this student nurse received report from simulation educator and will be assisting primary nurse STALIN Cordova from @[phone].
[2019-05-13 07:13] VITALS: BP 100/72; PULSE 102; TEMP 98.1
[2019-05-13 07:50] VITALS: BP 112/74
--- NOTE | 2019-05-13 11:29 | NUR ---
Assessment charted. Pt doing well. Resting at side of bed. IVF to white port on RIJ TLC. Disucssed taking mendoza out today. Denies neesd or other pain, will continue to monitor.
[2019-05-13 12:44] VITALS: BP 114/70; PULSE 106; TEMP 97.7
--- NOTE | 2019-05-13 13:54 | NUR ---
Primary nurse was assisted with [phone] patient care by [facility] ADN student Marciano Nelson and [facility] instructor Greer Yi RN-.
--- NOTE | 2019-05-13 14:40 | NUR ---
General Farm Hand attended clinical rounds with the team. SW to continue to follow as needed.
[2019-05-13 16:18] VITALS: BP 99/59; PULSE 106; TEMP 98.1
--- NOTE | 2019-05-13 18:08 | NUR ---
Pt doing well, resting in chair at side of bed. Shipman cather out by studetn nurse, has voided well. Denies needs, discussed plan of care. Will give bedside shift report to nightshift nurse who will resume care.
[2019-05-13 19:19] VITALS: BP 114/77; PULSE 109; TEMP 97.7
[2019-05-14 00:10] VITALS: BP 92/47; PULSE 107; TEMP 98.4
[2019-05-14 03:48] VITALS: BP 97/51; PULSE 105; TEMP 98.3
[2019-05-14 06:46] LABS: BASO # 0.1 (0.0-0.2); BASO % 0.7 % (0.0-2.0); EOS # 0.2 (0.0-0.7); EOS % 2.2 % (0-4.0); GRAN # 6.9 (1.4-6.5); GRAN % 69.2 % (42.2-75.2); HEMOGLOBIN 11.8 g/dl (13.5-18.0); LYMPH % 19.7 % (20.0-51.0); MEAN CELL VOLUME 83 fl (80.0-100.0); MEAN CORPUSCULAR HEMOGLOBIN 28 pg (27.0-31.0); MEAN CORPUSCULAR HGB CONC 34 g/dl (33.0-37.0); MEAN PLATELET VOLUME 9.9 fl (7.4-10.4); MONO # 0.8 (0.1-0.6); MONO % 7.5 % (1.7-9.3); PLATELET COUNT 376 K/mm3 (130-400); RED BLOOD COUNT 4.21 M/mm3 (4.20-5.60); REDCELL DISTRIBUTION WIDTH-CV 15.6 % (11.5-14.5)
[2019-05-14 07:05] LABS: CALCIUM 8.5 mg/dL (8.4-10.2); CREATININE, serum 2.99 (0.66-1.25); MAGNESIUM 1.1 mg/dL (1.6-2.3); POTASSIUM 3.7 mmol/L (3.4-5.0)
[2019-05-14 08:31] VITALS: BP 113/67; PULSE 103; TEMP 98.2
[2019-05-14 13:01] VITALS: BP 105/66; PULSE 101; TEMP 98.6
[2019-05-14 16:49] VITALS: BP 129/71; PULSE 107; TEMP 98.7
--- NOTE | 2019-05-14 18:00 | NUR ---
PT HAD UNEVENTFUL DAY. HAS HAD GOOD OUTPUT. NO C/O PAIN THIS SHIFT. HAS BEEN WORKING ON WORKING ON INCREASING DIET AND FINDING MORE FOOD THAT IS PALLIPABLE TODAY. HAS RECIEVED INSULIN SCHEDULED, ORDERS CHANGED AND RECIEVED NEW INSUILIN ORDERS, THIS NURSE WENT OVER CHAGNES WITH ORDERS THE ARRISED. NO ISSUES OR CONSERNS VOICED. PLEASANT AND COOPERTATIVE WITH CARES. HAS BEEN ON ROOM AIR THIS SHIFT.
[2019-05-14 20:09] VITALS: BP 113/69; PULSE 110; TEMP 98.4
--- NOTE | 2019-05-14 20:45 | NUR ---
Patient assessed at this time. Alert and oriented x 4, and able to make needs known. Denies having pain and discomfort at this time. Triple lumen catheter to right IJ. Site is without redness, warmth, swelling, and pain. NS running at 60 ml/hr per orders. Denies having SOB and dyspnea. LS CTA. Respirations even and unlabored. HRR. Telemetry in place-sinus tachycardia. Capillary refill less than 3 seconds. Non-tenting skin turgor. BSAx4. Abdoemnf soft and non-tender. Reports he hasnt had a BM for over a week, but is passing gas. 1+ edema BUE, 2+ BLE. Red discoloration to BLE. BLE/feet are very dry. Patient has unstagable pressures ulcer to bilateral buttocks, in gluteal fold. Area cleaned and pat dried. Brown drainage noted. Ulcer to right inner buttocks black/hard. Surrounding skin red and hard. To left innder buttocks, area has yellow sloughing. Mepilex applied to pressure ulcers. Sitting up in recliner watching TV at this time. Call light is within reach. Encouraged to lay on side in bed to get pressure off bottom, and voiced understanding. Voices no questions, needs, or concerns at this time. Call light is within reach.
[2019-05-15 00:55] VITALS: BP 106/48; PULSE 102; TEMP 97.8
[2019-05-15 04:16] VITALS: BP 106/78; PULSE 102; TEMP 97.9
--- NOTE | 2019-05-15 06:37 | NUR ---
Patient received PRN Percocet as requested for pain earlier this shift. Reported medication was effective. Did not sleep in bed, slept in recliner. Encouraged to get in bed to get off bottom, but refused. Voices no other questions, needs, or concerns at this time. In recliner watching TV. Call light is within reach.
[2019-05-15 06:44] LABS: CALCIUM 8.4 mg/dL (8.4-10.2); CREATININE, serum 1.96 (0.66-1.25); MAGNESIUM 1.7 mg/dL (1.6-2.3); POTASSIUM 3.5 mmol/L (3.4-5.0)
[2019-05-15 08:29] VITALS: BP 149/90; PULSE 98; TEMP 97.6
[2019-05-15] MEDS ORDERED: LEVEMIR FLEX100 U/ML SQ (11:23)
[2019-05-15] MEDS ORDERED: NOVOLOG FLEX100 U/ML SQ (11:24)
[2019-05-15] MEDS ORDERED: COLACE 100100 MG/CAP PO (11:32)
[2019-05-15 12:29] VITALS: BP 127/75; PULSE 106; TEMP 98
--- NOTE | 2019-05-15 18:11 | NUR ---
WENT OVER DISCHARGE INFO WITH PT. ALL QUESTIONS ASKED. THIS NURSE PROVIDED PT WITH ALOT OF GLUCOSE PRINTED INFO. NO ISSUES OR CONSERNS VOICED. TRIPLE LUMIN REMOVED WITHOUT ISSUES. DRESSING IN PLACE, CENTRAL LINE DC INFO DISSUSSED WITH PT AND SENT HOME WITH PT.
== END 2019-05-15 16:00 | disposition home or self-care (01) | DRG 682 ==
LOC: COL.ER 10:04 → ICU 11:08 → MEDICAL 11:08 → IMCU 11:08 → ICU 18:16 → MEDICAL 05-10 13:03
PROVIDERS: Emergency Medicine; Internal Medicine Nephrology; Nurse Practitioner Family; Physician Assistant; ADMIT Hospitalist
PROC: 05HN33Z Insertion of Infusion Device into Left Internal Jugular Vein, Percutaneous Approach (ICD-10-PCS; principal; 2019-05-09)
PROC: 02PYX3Z Removal of Infusion Device from Great Vessel, External Approach (ICD-10-PCS; 2019-05-09)
PROC: 0DB68ZX Excision of Stomach, Via Natural or Artificial Opening Endoscopic, Diagnostic (ICD-10-PCS; 2019-05-11)
DX: N17.0 Acute kidney failure with tubular necrosis (principal); E11.00 Type 2 diabetes mellitus with hyperosmolarity without nonketotic hyperglycemic-hyperosmolar coma (NKHHC); E87.2 Acidosis; E23.0 Hypopituitarism; Z68.42 Body mass index [BMI] 45.0-49.9, adult; I95.9 Hypotension, unspecified; G47.33 Obstructive sleep apnea (adult) (pediatric); E78.5 Hyperlipidemia, unspecified; M10.9 Gout, unspecified; M19.90 Unspecified osteoarthritis, unspecified site; I10 Essential (primary) hypertension; I25.10 Atherosclerotic heart disease of native coronary artery without angina pectoris; K21.9 Gastro-esophageal reflux disease without esophagitis; E66.01 Morbid (severe) obesity due to excess calories; E87.5 Hyperkalemia; E83.39 Other disorders of phosphorus metabolism; K31.7 Polyp of stomach and duodenum; K29.30 Chronic superficial gastritis without bleeding; G89.29 Other chronic pain; F40.240 Claustrophobia; R13.10 Dysphagia, unspecified; K59.00 Constipation, unspecified; K57.90 Diverticulosis of intestine, part unspecified, without perforation or abscess without bleeding; Z86.711 Personal history of pulmonary embolism; Z95.5 Presence of coronary angioplasty implant and graft; I25.2 Old myocardial infarction; Z88.8 Allergy status to other drugs, medicaments and biological substances; Z79.82 Long term (current) use of aspirin; Z79.02 Long term (current) use of antithrombotics/antiplatelets; Z79.891 Long term (current) use of opiate analgesic; Z79.84 Long term (current) use of oral hypoglycemic drugs; T50.915A Adverse effect of multiple unspecified drugs, medicaments and biological substances, initial encounter
CPT/HCPCS: 99223-AI; 99231-AI; 99232-AI; 99233-AI; 99239; A9500; J1644; J1815; J2270; J2370; J2405; J2704; J2785; J3475; J7030; J7040; J7060

== ENCOUNTER 2019-05-16 19:20 | Inpatient (IN) | payer BC, OTHER ==
[~2019-05-16] VITALS: Ht 182.9 cm; Wt 167.0 kg
[~2019-05-16 19:20] MED LIST changes: +COLACE 100100 MG/CAP PO; +LEVEMIR FLEX100 U/ML SQ; +NOVOLOG FLEX100 U/ML SQ
[2019-05-16 20:17] LABS: BASO # 0.1 (0.0-0.2); BASO % 0.5 % (0.0-2.0); EOS # 0.2 (0.0-0.7); EOS % 1.5 % (0-4.0); GRAN # 6.9 (1.4-6.5); GRAN % 71.1 % (42.2-75.2); LYMPH # 1.8 (1.2-3.4); LYMPH % 18.3 % (20.0-51.0); MEAN CELL VOLUME 83 fl (80.0-100.0); MEAN CORPUSCULAR HEMOGLOBIN 28 pg (27.0-31.0); MEAN CORPUSCULAR HGB CONC 34 g/dl (33.0-37.0); MONO # 0.8 (0.1-0.6); PLATELET COUNT 348 K/mm3 (130-400); REDCELL DISTRIBUTION WIDTH-CV 15.9 % (11.5-14.5)
[2019-05-16 20:19] LABS: HEMATOCRIT 32.4 % (42.0-52.0)
[2019-05-16 20:25] LABS: ACETONE,SERUM NEGATIVE
[2019-05-16 20:27] LABS: ALANINE AMINOTRANSFERASE 16 U/L (21-72); ALBUMIN 3.5 gm/dL (3.5-5.0); ALKALINE PHOSPHATASE 154 U/L (50-136); ANION GAP 12 mmol/L (7-16); AST,SGOT 38 U/L (15-37); BILIRUBIN,TOTAL 0.4 mg/dL (0.0-1.0); BLOOD UREA NITROGEN 13 mg/dL (9-20); C-REACTIVE PROTEIN 3.4 mg/dL (0.0-0.9); CALCIUM 8.4 mg/dL (8.4-10.2); CARBON DIOXIDE 22 mmol/L (22-30); CHLORIDE 104 mmol/L (98-107); CREATININE, serum 1.37 (0.66-1.25); GLUCOSE 250 mg/dL (74-106); POTASSIUM 3.5 mmol/L (3.4-5.0); SODIUM 138 mmol/L (137-145)
[2019-05-16 21:31] LABS: COLLECTION METHOD CATHETER
[2019-05-16 21:45] LABS: MUCOUS Present /lpf; PH 5 (5-8); SQUAMOUS EPITHELIAL 0-2 /hpf; URINE APPEARANCE Hazy; URINE BACTERIA Occasional /hpf; URINE BILIRUBIN Negative (NEGATIVE); URINE BLOOD Negative (NEGATIVE); URINE COLOR Yellow; URINE GLUCOSE 3+ (NEGATIVE); URINE KETONE Negative (NEGATIVE); URINE LEUKOCYTE ESTERASE Negative (NEGATIVE); URINE NITRATE Negative (NEGATIVE); URINE PROTEIN(semi-quant) Negative (NEGATIVE); URINE UROBILINOGEN Negative (NEGATIVE)
[2019-05-17] VITALS (11 sets, daily range): BP systolic 84–140; BP diastolic 37–95; PULSE 95–109; TEMP 97.2–98.5
[2019-05-17 06:42] LABS: HEMOGLOBIN 11.2 g/dl (13.5-18.0); MEAN CELL VOLUME 84 fl (80.0-100.0); MEAN CORPUSCULAR HEMOGLOBIN 28 pg (27.0-31.0); MEAN CORPUSCULAR HGB CONC 34 g/dl (33.0-37.0); MEAN PLATELET VOLUME 9.2 fl (7.4-10.4); PLATELET COUNT 303 K/mm3 (130-400); RED BLOOD COUNT 3.95 M/mm3 (4.20-5.60); REDCELL DISTRIBUTION WIDTH-CV 15.9 % (11.5-14.5)
[2019-05-17 06:47] LABS: HEMATOCRIT 33.3 % (42.0-52.0)
[2019-05-17 06:57] LABS: ALBUMIN 3.1 gm/dL (3.5-5.0); BILIRUBIN,TOTAL 0.6 mg/dL (0.0-1.0); CREATININE, serum 1.14 (0.66-1.25); POTASSIUM 3.2 mmol/L (3.4-5.0); TOTAL PROTEIN 6.5 gm/dL (6.4-8.2)
[2019-05-17 07:08] LABS: BAND 8 % (0-10); LYMPHOCYTE 8 % (20.0-51.0); NEUTROPHILS 84 % (42.0-75.2); PLATELET ESTIMATE NORMAL (NORMAL)
[2019-05-18 03:18] VITALS: BP 100/56; PULSE 80
[2019-05-18 07:50] VITALS: BP 147/87; PULSE 106; TEMP 97.7
[2019-05-18 08:04] LABS: BASO # 0.1 (0.0-0.2); BASO % 0.8 % (0.0-2.0); EOS # 0.2 (0.0-0.7); EOS % 2.4 % (0-4.0); GRAN # 6.6 (1.4-6.5); GRAN % 70.2 % (42.2-75.2); HEMATOCRIT 36.3 % (42.0-52.0); HEMOGLOBIN 12.1 g/dl (13.5-18.0); LYMPH # 1.6 (1.2-3.4); LYMPH % 17.6 % (20.0-51.0); MEAN CELL VOLUME 85 fl (80.0-100.0); MEAN CORPUSCULAR HEMOGLOBIN 28 pg (27.0-31.0); MEAN CORPUSCULAR HGB CONC 33 g/dl (33.0-37.0); MONO # 0.8 (0.1-0.6); MONO % 8.6 % (1.7-9.3); PLATELET COUNT 383 K/mm3 (130-400); RED BLOOD COUNT 4.27 M/mm3 (4.20-5.60); REDCELL DISTRIBUTION WIDTH-CV 16.4 % (11.5-14.5)
[2019-05-18 08:18] LABS: CALCIUM 8.1 mg/dL (8.4-10.2); CREATININE, serum 1.25 (0.66-1.25); POTASSIUM 3.6 mmol/L (3.4-5.0)
[2019-05-18 16:06] VITALS: BP 108/47; PULSE 101; TEMP 98.6
[2019-05-18 18:59] VITALS: BP 136/70; PULSE 89; TEMP 98.6
[2019-05-18 23:27] VITALS: BP 131/69; PULSE 89
[2019-05-19 03:40] VITALS: BP 98/58; PULSE 83; TEMP 98.6
[2019-05-19 07:23] LABS: BASO # 0.1 (0.0-0.2); BASO % 1.1 % (0.0-2.0); EOS # 0.3 (0.0-0.7); EOS % 4.7 % (0-4.0); GRAN # 3.2 (1.4-6.5); GRAN % 56.8 % (42.2-75.2); HEMOGLOBIN 10.4 g/dl (13.5-18.0); LYMPH # 1.6 (1.2-3.4); LYMPH % 28.1 % (20.0-51.0); MEAN CELL VOLUME 86 fl (80.0-100.0); MEAN CORPUSCULAR HEMOGLOBIN 28 pg (27.0-31.0); MEAN CORPUSCULAR HGB CONC 33 g/dl (33.0-37.0); MEAN PLATELET VOLUME 8.8 fl (7.4-10.4); MONO # 0.5 (0.1-0.6); MONO % 8.9 % (1.7-9.3); PLATELET COUNT 306 K/mm3 (130-400); RED BLOOD COUNT 3.69 M/mm3 (4.20-5.60); REDCELL DISTRIBUTION WIDTH-CV 16.3 % (11.5-14.5)
[2019-05-19 07:29] LABS: HEMATOCRIT 31.8 % (42.0-52.0)
[2019-05-19 07:31] LABS: CALCIUM 8.1 mg/dL (8.4-10.2); CREATININE, serum 1.02 (0.66-1.25); POTASSIUM 3.5 mmol/L (3.4-5.0)
[2019-05-19 13:00] VITALS: BP 113/65; PULSE 99; TEMP 97.6
[2019-05-19 19:40] VITALS: BP 127/64; PULSE 90; TEMP 98.6
[2019-05-19 23:25] VITALS: BP 109/56; PULSE 94; TEMP 98.3
[2019-05-20 04:00] VITALS: BP 108/50; PULSE 88; TEMP 98.8
[2019-05-20 07:38] LABS: CALCIUM 8.9 mg/dL (8.4-10.2); CREATININE, serum 0.87 (0.66-1.25); POTASSIUM 3.6 mmol/L (3.4-5.0)
[2019-05-20 07:46] LABS: BASO % 0.7 % (0.0-2.0); EOS # 0.2 (0.0-0.7); EOS % 4.2 % (0-4.0); GRAN # 2.4 (1.4-6.5); GRAN % 52.6 % (42.2-75.2); HEMOGLOBIN 10.3 g/dl (13.5-18.0); LYMPH # 1.6 (1.2-3.4); LYMPH % 34.4 % (20.0-51.0); MEAN CELL VOLUME 86 fl (80.0-100.0); MEAN CORPUSCULAR HEMOGLOBIN 28 pg (27.0-31.0); MEAN CORPUSCULAR HGB CONC 33 g/dl (33.0-37.0); MEAN PLATELET VOLUME 8.7 fl (7.4-10.4); MONO # 0.4 (0.1-0.6); MONO % 7.7 % (1.7-9.3); PLATELET COUNT 310 K/mm3 (130-400); RED BLOOD COUNT 3.66 M/mm3 (4.20-5.60); REDCELL DISTRIBUTION WIDTH-CV 16.4 % (11.5-14.5)
[2019-05-20 07:49] LABS: HEMATOCRIT 31.4 % (42.0-52.0)
[2019-05-20 08:06] VITALS: BP 141/80; PULSE 81; TEMP 98.4
[2019-05-20] MEDS ORDERED: AMOXICILLIN 8751 TAB PO (09:04)
[2019-05-20] MEDS ORDERED: MIRALAX510G PO (09:05)
[2019-05-20] MEDS ORDERED: SENNA-LAX8.6 MG PO (09:05)
[2019-05-20 12:18] VITALS: BP 145/76; PULSE 80; TEMP 97.4
[2019-05-20 15:04] VITALS: BP 166/79; PULSE 98; TEMP 97.6
== END 2019-05-20 17:00 | disposition home or self-care (01) | DRG 571 ==
LOC: COL.ER 19:20 → MEDICAL 23:12
PROVIDERS: Emergency Medicine; Nurse Practitioner Family; Physician Assistant; Surgery; ADMIT Student in an Organized Health Care Education/Training Program
PROC: 0JB70ZZ Excision of Back Subcutaneous Tissue and Fascia, Open Approach (ICD-10-PCS; principal; 2019-05-18 10:00)
DX: L89.152 Pressure ulcer of sacral region, stage 2 (principal); Z68.42 Body mass index [BMI] 45.0-49.9, adult; E66.01 Morbid (severe) obesity due to excess calories; R34 Anuria and oliguria; K59.00 Constipation, unspecified; G47.33 Obstructive sleep apnea (adult) (pediatric); E11.9 Type 2 diabetes mellitus without complications; E78.5 Hyperlipidemia, unspecified; E87.6 Hypokalemia; E83.42 Hypomagnesemia; I25.10 Atherosclerotic heart disease of native coronary artery without angina pectoris; K21.9 Gastro-esophageal reflux disease without esophagitis; M19.90 Unspecified osteoarthritis, unspecified site; M10.072 Idiopathic gout, left ankle and foot; B95.1 Streptococcus, group B, as the cause of diseases classified elsewhere; B95.2 Enterococcus as the cause of diseases classified elsewhere; Z86.711 Personal history of pulmonary embolism; Z95.828 Presence of other vascular implants and grafts; I25.2 Old myocardial infarction; Z79.82 Long term (current) use of aspirin; Z79.84 Long term (current) use of oral hypoglycemic drugs
CPT/HCPCS: 99222-AI; 99231-AI; 99232-AI; 99239; J0330; J1170; J1644; J1815; J2212; J2405; J2543; J2704; J3010; J3475; J7030

== ENCOUNTER 2019-08-09 21:47 | Emergency (ER) | payer BC ==
[2009-05-14 09:10] VITALS: BP 138/105
[~2019-08-09] VITALS: Ht 180.3 cm; Wt 168.2 kg
[~2019-08-09 21:47] MED LIST changes: +MIRALAX510G PO; +SENNA-LAX8.6 MG PO
[2019-08-09 22:07] VITALS: TEMP 98.3
[2019-08-09 23:15] LABS: BASO % 0.6 % (0.0-2.0); EOS # 0.2 (0.0-0.7); EOS % 3.3 % (0-4.0); GRAN # 3.3 (1.4-6.5); GRAN % 51.5 % (42.2-75.2); HEMATOCRIT 39.3 % (42.0-52.0); LYMPH # 2.4 (1.2-3.4); LYMPH % 37.5 % (20.0-51.0); MEAN CELL VOLUME 84 fl (80.0-100.0); MEAN CORPUSCULAR HEMOGLOBIN 28 pg (27.0-31.0); MEAN CORPUSCULAR HGB CONC 33 g/dl (33.0-37.0); MEAN PLATELET VOLUME 8.6 fl (7.4-10.4); MONO # 0.4 (0.1-0.6); MONO % 6.9 % (1.7-9.3); PLATELET COUNT 318 K/mm3 (130-400); RED BLOOD COUNT 4.67 M/mm3 (4.20-5.60)
[2019-08-09 23:56] VITALS: BP 130/73; PULSE 71
== END 2019-08-09 23:56 | disposition home or self-care (01) ==
LOC: COL.ER 21:47
PROVIDERS: Family Medicine
DX: L89.159 Pressure ulcer of sacral region, unspecified stage (principal); I25.10 Atherosclerotic heart disease of native coronary artery without angina pectoris; Z79.02 Long term (current) use of antithrombotics/antiplatelets; Z79.82 Long term (current) use of aspirin; Z79.4 Long term (current) use of insulin

== ENCOUNTER 2020-07-04 09:14 | Inpatient (IN) | payer OTHER ==
[2009-05-14 09:10] VITALS: BP 138/105
[~2020-07-04] VITALS: Ht 180.3 cm; Wt 181.8 kg
[2020-07-04] VITALS (14 sets, daily range): BP systolic 125–158; BP diastolic 65–83; PULSE 59–73; TEMP 97.2–98
[2020-07-04 10:15] LABS: BASO # 0.1 (0.0-0.2); BASO % 0.8 % (0.0-2.0); EOS # 0.2 (0.0-0.7); EOS % 2.2 % (0-4.0); GRAN # 4.6 (1.4-6.5); GRAN % 63.8 % (42.2-75.2); HEMATOCRIT 41.2 % (42.0-52.0); HEMOGLOBIN 13.5 g/dl (13.5-18.0); LYMPH # 1.7 (1.2-3.4); LYMPH % 23.7 % (20.0-51.0); MEAN CELL VOLUME 82 fl (80.0-100.0); MEAN CORPUSCULAR HEMOGLOBIN 27 pg (27.0-31.0); MEAN CORPUSCULAR HGB CONC 33 g/dl (33.0-37.0); MEAN PLATELET VOLUME 8.7 fl (7.4-10.4); MONO # 0.7 (0.1-0.6); MONO % 9.2 % (1.7-9.3); PLATELET COUNT 291 K/mm3 (130-400); RED BLOOD COUNT 5.03 M/mm3 (4.20-5.60); REDCELL DISTRIBUTION WIDTH-CV 15.2 % (11.5-14.5)
[2020-07-04 10:21] LABS: PARTIAL THROMBOPLASTIN TIME 30.4 SECONDS (26.0-37.0)
[2020-07-04 10:35] LABS: ALANINE AMINOTRANSFERASE 36 U/L (4-49); ALKALINE PHOSPHATASE 80 U/L (50-136); ANION GAP 8 mmol/L (7-16); AST,SGOT 35 U/L (15-37); BILIRUBIN,TOTAL 0.5 mg/dL (0.0-1.0); BLOOD UREA NITROGEN 17 mg/dL (9-20); CALCIUM 9.1 mg/dL (8.4-10.2); CARBON DIOXIDE 30 mmol/L (22-30); CHLORIDE 102 mmol/L (98-107); GLUCOSE 121 mg/dL (74-106); LIPASE 269 U/L (23-300); POTASSIUM 3.9 mmol/L (3.4-5.0); SODIUM 140 mmol/L (137-145); TOTAL PROTEIN 7.3 gm/dL (6.4-8.2)
[2020-07-04 10:52] LABS: TROPONIN-I < 0.012 ng/mL (0.000-0.035)
[2020-07-04] MEDS ORDERED: BENICAR HCT 251 TAB PO (11:30)
[2020-07-04] MEDS ORDERED: ALDACTONE 25MG25 M1 PO (11:32)
[2020-07-04] MEDS ORDERED: VICTOZA6 MG/ML SQ (11:39)
[2020-07-04] MEDS ORDERED: NORVASC 5MG5 MG/TAB PO (11:40)
[2020-07-04] MEDS ORDERED: TOPROL XL100 MG PO (11:40)
[2020-07-04] MEDS ORDERED: ZYLOPRIM 300MG300 MG PO (11:41)
[2020-07-04] MEDS ORDERED: LEVEMIR FLEX100 U/ML SQ (11:56)
[2020-07-04] MEDS ORDERED: NOVOLOG FLEX100 U/ML SQ (11:56)
[2020-07-04 14:00] LABS: CHOLESTEROL RISK RATIO 7.7
--- NOTE | 2020-07-04 14:27 | NUR ---
SEE MERGE FOR ALL MEDICATION ADMINISTRATION TIMES, INTRA AND POST SEDATION ASSESSMENTS
--- NOTE | 2020-07-04 15:20 | NUR ---
Patient to room 310 from the laborer construction or leak gang. A&Ox4. VSS. IV CDI. Radial band right arm, CDI. IV CDI. Reports discomfort in right arm from being in an uncomfortable position during the procedure. No other pain or discomfort. VS monitored. No further needs expressed from the patient. Call light within reach. Patient instructed patient not to put any weight on right arm. Patient verbalized an understanding.
--- NOTE | 2020-07-04 17:23 | NUR ---
Patient sitting on the edge of bed, refused dinner says he wasnt hungry. A&Ox4. VSS. Post op VS being monitored. IV CDI. Reporting discomfort in right arm, not from the radial band. No further needs expressed from the patient. Call light within reach
--- NOTE | 2020-07-04 18:17 | NUR ---
5mls air removed from the radial band. Radial site CDI. Patient sitting up on the edge of bed with eyes closed. Will continue to monitor site and VS. Call light within reach
--- NOTE | 2020-07-04 18:28 | NUR ---
Shipman placed. 10ml water in balloon. Pericare provided before and after insertion. 400ml yellow urine voided. Patient repositioned for comfort. Call light within reach. Bed alarm on
--- NOTE | 2020-07-04 20:00 | NUR ---
Patient assessed at this time. Alert and oriented x 4, and able to make needs known. Reports level 5 pain to chest, states pain is "stable" and no changes. Declined PRN Morphine. Encouraged to call if he wanted anything. Heart cath was negative today. The last 5 ml of air removed from band at this time, and bandaid placed to site. No hematoma or bleeding noted. Midline to left upper arm. Denies SOB and dyspnea. LS CTA in upper lobes, diminished in lower. Respirations even and unlabored. HRR. Telemetry: sinus tachycardia. Capillary refill less than 3 seconds. Non-tenting skin turgo. BSAx4. Abdomen soft and non-tender. 2+ edema BLE. Redness to BLE, no increase in warmth. Declined insulin due to no appetite and BS being lower. Voices no questions, needs, or concerns at this time. Resting in bed with call light within reach.
[2020-07-05 03:31] VITALS: BP 116/59; PULSE 61; TEMP 97.8
--- NOTE | 2020-07-05 05:16 | NUR ---
Patient has stated he has had some mild chest pain during the night, but has declined any medication for it. Voices no questions, needs, or concerns at this time. Resting in bed with call light within reach. Right radial site with bandaid CDI. No hematoma to area. Arm board on.
--- NOTE | 2020-07-05 06:30 | NUR ---
PT IS UP IN THE RECLINER. DENIES NEEDS AT THIS TIME. REFUSED FOOD LAST NIGHT, SO NIGHT RN HELD [facility] D/T WBG OF 88. WILL RECHECK AND COVER NECESSARY. NO FURTHER CONCERNS AT THIS TIME. CALL LIGHT WITHIN REACH.
[2020-07-05 07:34] VITALS: BP 128/65; PULSE 67; TEMP 97.6
--- NOTE | 2020-07-05 09:54 | NUR ---
Initial visit; Patient states he is waiting for results of other tests and appears relaxed and patient. Lunchroom Supervisor wished him well and offered God's blessings.
[2020-07-05] MEDS ORDERED: IMDUR 30MG30 MG/TAB PO (11:26)
[2020-07-05] MEDS ORDERED: LIPITOR 80MG80 MG PO (12:11)
== END 2020-07-05 14:45 | disposition home or self-care (01) | DRG 287 ==
LOC: COL.ER 09:14 → MEDICAL 11:49
PROVIDERS: Emergency Medicine; ADMIT Hospitalist
PROC: 4A023N7 Measurement of Cardiac Sampling and Pressure, Left Heart, Percutaneous Approach (ICD-10-PCS; principal; 2020-07-04)
PROC: B2111ZZ Fluoroscopy of Multiple Coronary Arteries using Low Osmolar Contrast (ICD-10-PCS; 2020-07-04)
PROC: 02HV33Z Insertion of Infusion Device into Superior Vena Cava, Percutaneous Approach (ICD-10-PCS; 2020-07-04)
DX: I25.110 Atherosclerotic heart disease of native coronary artery with unstable angina pectoris (principal); Z68.43 Body mass index [BMI] 50.0-59.9, adult; E66.01 Morbid (severe) obesity due to excess calories; I10 Essential (primary) hypertension; E78.5 Hyperlipidemia, unspecified; M19.90 Unspecified osteoarthritis, unspecified site; K21.9 Gastro-esophageal reflux disease without esophagitis; M10.9 Gout, unspecified; E87.70 Fluid overload, unspecified; G47.33 Obstructive sleep apnea (adult) (pediatric); Z79.82 Long term (current) use of aspirin; Z79.4 Long term (current) use of insulin; Z95.818 Presence of other cardiac implants and grafts; Z86.711 Personal history of pulmonary embolism
CPT/HCPCS: C1751; C1769; C1892; J1644; J1650; J1815; J2250; J3010

== ENCOUNTER 2020-07-19 13:20 | Observation (INO) | payer OTHER ==
[~2020-07-19] VITALS: Ht 182.9 cm; Wt 200.3 kg
[~2020-07-19 13:20] MED LIST changes: +IMDUR 30MG30 MG/TAB PO; +LIPITOR 80MG80 MG PO; +TOPROL XL100 MG PO; +VICTOZA6 MG/ML SQ; +ZYLOPRIM 300MG300 MG PO
[2020-07-19 14:05] LABS: BASO # 0.1 (0.0-0.2); BASO % 0.6 % (0.0-2.0); EOS # 0.1 (0.0-0.7); EOS % 1.4 % (0-4.0); GRAN % 70.1 % (42.2-75.2); HEMATOCRIT 41.8 % (42.0-52.0); HEMOGLOBIN 13.8 g/dl (13.5-18.0); LYMPH # 2.1 (1.2-3.4); LYMPH % 20.6 % (20.0-51.0); MEAN CELL VOLUME 84 fl (80.0-100.0); MEAN CORPUSCULAR HEMOGLOBIN 28 pg (27.0-31.0); MEAN CORPUSCULAR HGB CONC 33 g/dl (33.0-37.0); MONO # 0.7 (0.1-0.6); MONO % 7.1 % (1.7-9.3); PLATELET COUNT 356 K/mm3 (130-400); RED BLOOD COUNT 4.97 M/mm3 (4.20-5.60); REDCELL DISTRIBUTION WIDTH-CV 15.8 % (11.5-14.5)
[2020-07-19 14:17] LABS: ALBUMIN 4.5 gm/dL (3.5-5.0); BILIRUBIN,TOTAL 0.4 mg/dL (0.0-1.0); CALCIUM 9.7 mg/dL (8.4-10.2); CREATININE, serum 1.08 (0.66-1.25); POTASSIUM 3.7 mmol/L (3.4-5.0)
[2020-07-19] MEDS ORDERED: CRESTOR20 MG PO ×2 (18:33→22:38)
[2020-07-19 18:34] LABS: COLLECTION METHOD CLEAN CATCH
[2020-07-19 18:41] LABS: MUCOUS Present /lpf; PH 5 (5-8); URINE APPEARANCE Clear; URINE BACTERIA None Seen /hpf; URINE BILIRUBIN Negative (NEGATIVE); URINE BLOOD Negative (NEGATIVE); URINE COLOR Yellow; URINE GLUCOSE Negative (NEGATIVE); URINE KETONE Negative (NEGATIVE); URINE LEUKOCYTE ESTERASE Negative (NEGATIVE); URINE NITRATE Negative (NEGATIVE); URINE PROTEIN(semi-quant) Negative (NEGATIVE); URINE RBC 0-2 /hpf; URINE UROBILINOGEN Negative (NEGATIVE)
[2020-07-19] MEDS ORDERED: LIPITOR 80MG80 MG PO (21:29)
--- NOTE | 2020-07-19 22:08 | NUR ---
ARRIVES VIA W/C FROM ED TO ROOM 322. DX CHEST PAIN. PT IS ALERT AND ORIENTED X4.
[2020-07-19 22:21] VITALS: BP 150/67; PULSE 71; TEMP 98
--- NOTE | 2020-07-19 23:00 | NUR ---
Pt eats sandwich, reports not eating since 1200. Has SL to left AC without redness or swelling. Given Levemir 25units per order from Jax MELO. Pt in chair at bedside.
[2020-07-20 00:40] VITALS: BP 134/66; PULSE 69; TEMP 98.4
[2020-07-20 03:50] VITALS: BP 140/55; PULSE 71; TEMP 97.4
[2020-07-20 08:00] VITALS: BP 146/74; PULSE 76; TEMP 97.8
--- NOTE | 2020-07-20 08:00 | NUR ---
Patient sitting up in recliner alert and oriented x 3. Assessment complete. Denies pain at this time. INT to LAC without complications. Denies further needs at this time.
[2020-07-20] MEDS ORDERED: NORCO 325 MG-51 TAB PO ×2 (10:11)
[2020-07-20] MEDS ORDERED: LIPITOR 80MG80 MG PO (10:19)
--- NOTE | 2020-07-20 10:29 | NUR ---
Initial visit; Patient thanked Extractor Tender Raw Stock for offering God's blessings and keeping him in her prayers.
[2020-07-20] MEDS ORDERED: CRESTOR40 MG PO (12:06)
--- NOTE | 2020-07-20 12:20 | NUR ---
Discharge education provided to patient. Educated on when to call provider and follow up appointments. Patient educated on medication changes. Patient verbalizes understanding. Refuses VS/ACCU check due to discharging. Denies further needs at this time. Patient ambulated out with surgical staff. INT to LAC discontinued, catheter tip intact.
--- NOTE | 2020-07-20 13:37 | NUR ---
Rapid Transit Operator attempted to meet with patient to discuss discharge planning. SW entered patient's room and introduced herself, then attempted to ask intake questions. Patient firmly asked SW to leave the room. SW asked patient if there was something wrong and he gestured for SW to leave. Intake not completed and patient to discharge home today.
== END 2020-07-20 12:20 | disposition home or self-care (01) ==
LOC: COL.ER 13:20 → SURG 18:12
PROVIDERS: Family Medicine; ADMIT Hospitalist
DX: R06.02 Shortness of breath (principal); I25.10 Atherosclerotic heart disease of native coronary artery without angina pectoris; Z95.5 Presence of coronary angioplasty implant and graft; I10 Essential (primary) hypertension; E11.9 Type 2 diabetes mellitus without complications; E78.5 Hyperlipidemia, unspecified; K21.9 Gastro-esophageal reflux disease without esophagitis; E66.01 Morbid (severe) obesity due to excess calories; G47.33 Obstructive sleep apnea (adult) (pediatric); Z86.711 Personal history of pulmonary embolism; Z88.8 Allergy status to other drugs, medicaments and biological substances; Z79.02 Long term (current) use of antithrombotics/antiplatelets; Z79.82 Long term (current) use of aspirin; Z79.4 Long term (current) use of insulin; E23.0 Hypopituitarism; M19.90 Unspecified osteoarthritis, unspecified site; I25.2 Old myocardial infarction
CPT/HCPCS: G0378; J1815; J1940; J2060; J3010; Q9967

== ENCOUNTER → 2020-09-05 | Outpatient (CLI) | payer OTHER ==
[~2020-09-05] MED LIST changes: +CRESTOR40 MG PO
== END ==
LOC: COL.PUL
DX: R06.02 Shortness of breath (principal)

== ENCOUNTER 2020-09-26 15:19 | Outpatient (RCR) | payer OTHER | END 2020-12-18 | disposition home or self-care (01) | LOC: WSOH | DX: S60.111A Contusion of right thumb with damage to nail, initial encounter (principal); S62.521A Displaced fracture of distal phalanx of right thumb, initial encounter for closed fracture; E78.00 Pure hypercholesterolemia, unspecified; E11.9 Type 2 diabetes mellitus without complications; I10 Essential (primary) hypertension; K21.9 Gastro-esophageal reflux disease without esophagitis; M50.30 Other cervical disc degeneration, unspecified cervical region; M10.9 Gout, unspecified; Z98.890 Other specified postprocedural states; Y99.0 Civilian activity done for income or pay ==

== ENCOUNTER 2021-04-04 09:15 | Outpatient (RCR) | payer OTHER, BC | END 2021-06-16 | disposition home or self-care (01) | LOC: WSPT | DX: M54.6 Pain in thoracic spine (principal) | CPT/HCPCS: G0283-GP ==

== ENCOUNTER 2021-04-10 09:27 | Outpatient (RCR) | payer OTHER | END 2021-05-19 | disposition home or self-care (01) | LOC: WSOH | DX: S29.012A Strain of muscle and tendon of back wall of thorax, initial encounter (principal); E78.00 Pure hypercholesterolemia, unspecified; E11.9 Type 2 diabetes mellitus without complications; I10 Essential (primary) hypertension; K21.9 Gastro-esophageal reflux disease without esophagitis; I25.10 Atherosclerotic heart disease of native coronary artery without angina pectoris; M50.30 Other cervical disc degeneration, unspecified cervical region; M10.9 Gout, unspecified; Y99.0 Civilian activity done for income or pay ==

== ENCOUNTER → 2021-04-15 | Outpatient (CLI) | payer OTHER | LOC: COL.RAD 13:46 | DX: Z01.812 Encounter for preprocedural laboratory examination (principal); R06.02 Shortness of breath | CPT/HCPCS: Q9967 ==

== ENCOUNTER 2021-06-25 10:59 | Emergency (ER) | payer OTHER ==
[~2021-06-25] VITALS: Ht 182.9 cm; Wt 175.0 kg
[2021-06-25 11:06] VITALS: BP 187/99; PULSE 75; TEMP 98.2
== END 2021-06-25 13:23 | disposition left against medical advice (07) ==
LOC: COL.ER 10:59
DX: R51.9 Headache, unspecified (principal); I10 Essential (primary) hypertension; I25.10 Atherosclerotic heart disease of native coronary artery without angina pectoris; E11.9 Type 2 diabetes mellitus without complications; E66.01 Morbid (severe) obesity due to excess calories; Z68.43 Body mass index [BMI] 50.0-59.9, adult; Z79.4 Long term (current) use of insulin; Z79.82 Long term (current) use of aspirin; Z79.84 Long term (current) use of oral hypoglycemic drugs; Z79.899 Other long term (current) drug therapy

== ENCOUNTER 2022-04-29 07:09 | Day surgery (SDC) | payer MEDICARE ==
[~2022-04-29] VITALS: Ht 182.9 cm; Wt 89.0 kg
[2022-04-29] VITALS (10 sets, daily range): BP systolic 148–178; BP diastolic 70–99; PULSE 62–71; TEMP 98.6
[2022-04-29] MEDS ORDERED: 00186-0372-20 PO (08:44)
[2022-04-29] MEDS ORDERED: ROBAXIN 75750 MG/TAB PO (08:44)
[2022-04-29] MEDS ORDERED: SPIRIVA RE2.5 MCG/Ac PO (08:45)
[2022-04-29] MEDS ORDERED: VENTOLIN0.09 MG PO (08:45)
--- NOTE | 2022-04-29 10:30 | NUR ---
PATIENT IS NOTED TO START HAVING SHOOTING PAIN STARTING IN MIDDLE CHEST RADIATING TO RIGHT SHOULDER. PATIENT IS DIAPHORETIC AND CANNOT SIT STILL IN BED. PT IS TAKEN TO PACU TO PLACE ON CEMENT MIXER DRIVER, PT IS IN NSR AT THIS TIME. CURRENTLY ON 1L O2 VIA NC. PATIENT HAS SHORTNESS OF BREATH THAT HE STATED IS GETTING BETTER AFTER BREATHING TREATMENTS. RIGHT UPPER LOBE IS DIMINISHED. CALL PLACED TO DR. JI WITH UPDATE AND HE STATED TO GIVE 2MG MORPHINE IV AND FOLLOW UP WITH PATIENT. MEDICATION IS GIVEN AND PT WITHIN A FEW MINUTES STOPS HAVING SPASMS AND STARTS TO HAVE RELIEF. PATIENT IS TAKEN BACK TO OUTPATIENT SURGERY BAY 1 AT 1055.
[2022-04-30] MEDS ORDERED: PROMETHAZINE H118 ML PO (22:45)
== END 2022-04-29 11:30 ==
LOC: SDCO 07:09
DX: R91.8 Other nonspecific abnormal finding of lung field (principal); E66.01 Morbid (severe) obesity due to excess calories; Z86.711 Personal history of pulmonary embolism; I25.2 Old myocardial infarction; G47.33 Obstructive sleep apnea (adult) (pediatric); Z68.43 Body mass index [BMI] 50.0-59.9, adult; K21.9 Gastro-esophageal reflux disease without esophagitis; Z79.899 Other long term (current) drug therapy
CPT/HCPCS: J2270; J2704; J7120

== ENCOUNTER 2022-04-30 19:23 | Emergency (ER) | payer MEDICARE ==
[~2022-04-30] VITALS: Ht 182.9 cm; Wt 181.8 kg
[~2022-04-30 19:23] MED LIST changes: +00186-0372-20 PO; +ROBAXIN 75750 MG/TAB PO; +SPIRIVA RE2.5 MCG/Ac PO; +VENTOLIN0.09 MG PO
[2022-04-30 19:26] VITALS: TEMP 97.5
[2022-04-30 20:13] LABS: BASO # 0.1 K/mm3 (0.0-0.2); EOS # 0.4 K/mm3 (0.0-0.7); EOS % 4.6 % (0.0-4.0); GRAN # 6.6 K/mm3 (1.4-6.5); GRAN % 70.7 % (42.2-75.2); HEMATOCRIT 43.3 % (42.0-52.0); LYMPH # 1.6 K/mm3 (1.2-3.4); LYMPH % 16.7 % (20.0-51.0); MEAN CELL VOLUME 82 fl (80.0-100.0); MEAN CORPUSCULAR HEMOGLOBIN 28 pg (27-31); MEAN CORPUSCULAR HGB CONC 35 g/dl (33.0-37.0); MEAN PLATELET VOLUME 9.1 fl (7.4-10.4); MONO # 0.6 K/mm3 (0.1-0.6); MONO % 6.7 % (1.7-9.3); PLATELET COUNT 292 K/mm3 (130-400); RED BLOOD COUNT 5.29 M/mm3 (4.20-5.60); REDCELL DISTRIBUTION WIDTH-CV 14.9 % (11.5-14.5)
[2022-04-30 20:38] LABS: ALANINE AMINOTRANSFERASE 27 U/L (0-55); ALBUMIN 3.7 gm/dL (3.4-4.8); ALKALINE PHOSPHATASE 92 U/L (40-150); ANION GAP 13 mmol/L (7-16); AST,SGOT 24 U/L (5-34); BILIRUBIN,TOTAL 0.4 mg/dL (0.2-1.2); BLOOD UREA NITROGEN 15 mg/dL (8-26); CALCIUM 9.2 mg/dL (8.4-10.2); CARBON DIOXIDE 21 mmol/L (23-31); CHLORIDE 105 mmol/L (98-107); CREATININE, serum 1.02 mg/dL (0.72-1.25); GLUCOSE 284 mg/dL (70-99); POTASSIUM 4.3 mmol/L (3.5-4.5); SODIUM 139 mmol/L (136-145); TOTAL PROTEIN 7.7 gm/dL (6.2-8.1)
[2022-04-30 20:46] LABS: TROPONIN-I < 0.010 ng/mL (0.00-0.033)
[2022-04-30] MEDS ORDERED: PROMETHAZINE H118 ML PO (22:45)
[2022-04-30 23:05] VITALS: BP 162/81; PULSE 69
== END 2022-05-01 00:48 | disposition home or self-care (01) ==
LOC: COL.ER 19:23
PROVIDERS: Personal Emergency Response Attendant
DX: J20.9 Acute bronchitis, unspecified (principal); E66.01 Morbid (severe) obesity due to excess calories; Z68.43 Body mass index [BMI] 50.0-59.9, adult
CPT/HCPCS: J1956

== ENCOUNTER → 2022-09-01 | Outpatient (CLI) | payer MEDICARE ==
[~2022-09-01] MED LIST changes: +PROMETHAZINE H118 ML PO
== END ==
LOC: COL.RAD 10:49
DX: R93.89 Abnormal findings on diagnostic imaging of other specified body structures (principal)
CPT/HCPCS: Q9967

== ENCOUNTER → 2023-08-25 | Outpatient (CLI) | payer MEDICARE ==
[~2023-08-25] MED LIST changes: +AMARYL 2MG T2 MG/TAB PO; +IMDUR 60MG60 MG/TAB PO; +ZANAFLEX CAPSULE4 MG PO
== END ==
LOC: COL.RAD 10:07
DX: M79.661 Pain in right lower leg (principal)

== ENCOUNTER 2023-10-05 12:06 | Emergency (ER) | payer MEDICARE ==
[~2023-10-05] VITALS: Ht 180.3 cm; Wt 177.3 kg
[2023-10-05 12:08] VITALS: TEMP 97
[2023-10-05] MEDS ORDERED: Morphine 4 MG/ML VIAL IV ONE (12:30)
[2023-10-05] MEDS ORDERED: oxyCODONE/Acetaminophen 10-325 MG TAB PO ONE (13:00)
[2023-10-05] MEDS ORDERED: PERCOCET 325 MG1 TA2 PO (14:26)
[2023-10-05] MEDS ORDERED: CEPHALEXIN500 M1 PO (14:26)
[2023-10-05 14:32] VITALS: BP 172/83; PULSE 80
== END 2023-10-05 14:35 | disposition home or self-care (01) ==
LOC: COL.ER 12:06
DX: S62.621A Displaced fracture of middle phalanx of left index finger, initial encounter for closed fracture (principal); E66.01 Morbid (severe) obesity due to excess calories; Z79.01 Long term (current) use of anticoagulants; Z68.44 Body mass index [BMI] 60.0-69.9, adult; W34.00XA Accidental discharge from unspecified firearms or gun, initial encounter; Y93.89 Activity, other specified

== ENCOUNTER → 2024-05-02 | Outpatient (CLI) | payer MEDICARE ==
[2005-07-03 05:04] VITALS: PULSE 57; TEMP 98.4
[~2024-05-02] VITALS: Ht 180.3 cm; Wt 182.9 kg
[~2024-05-02] MED LIST changes: +CEPHALEXIN500 M1 PO; +ELIQUIS 5MG PO; +MOUNJARO5 MG/0.5 M SQ; +PROAIR HFA0.09 MG/AC IH; +Regadenoson 0.08 MG/ML 5 ML SYRINGE IV SCH; +TOPROL XL 25MG25 MG PO
[2024-05-02 07:18] VITALS: BP 169/84; PULSE 72; TEMP 98.1
[2024-05-02 08:58] VITALS: BP 163/90; PULSE 64
[2024-05-02 09:02] VITALS: BP 158/78; PULSE 70
[2024-05-02 09:03] VITALS: BP 162/81; PULSE 72
[2024-05-02 09:04] VITALS: BP 166/80; PULSE 71
== END ==
LOC: COL.RAD 06:40
DX: I25.118 Atherosclerotic heart disease of native coronary artery with other forms of angina pectoris (principal); I42.9 Cardiomyopathy, unspecified
CPT/HCPCS: A9500-JZ; J2785